=== PATIENT | male | born 1955 | race Asian ===

== ENCOUNTER → 2017-11-23 | Day surgery (SDC) | payer OTHER ==
[~2017-11-23] VITALS: Ht 167.6 cm; Wt 62.0 kg
[~2017-11-23] MED LIST: ACETAMINOPHEN 325 MG TABLET PO PRN; BENA20 PO; CLON.2 PO; CYCLOPENTOLATE HCL 2% 2 ML OPHTHALMIC SOLUTION ONE; DICLOFENAC SODIUM 0.1% 2.5 ML OPHTHALMIC SOLUTION ONE; EPINEPHrine 1:1,000 [1 MG/ML] AMP IM ONE; FentaNYL CITRATE-PF 100 MCG/2 ML VIAL IVP ONE; HYALURONATE SODIUM 12 MG/ML 0.8 ML SYRINGE IO ONE; LIDOCAINE HCL/PF 1% 2 ML VIAL IM ONE; MIDAZOLAM HCL 2 MG/2 ML VIAL IVP ONE; MOXIFLOXACIN HCL 0.5% 3 ML OPHTHALMIC SOLUTION ONE; NIFE90TA45 PO; PHENYLEPHRINE HCL 2.5% 2 ML OPHTHALMIC SOLUTION ONE; PILOCARPINE HCL 4% 15 ML OPHTHALMIC SOLUTION OS ONE; POVIDONE-IODINE 10% 15 ML SOLUTION UD TP ONE; RINGERS SOLUTION,LACTATED 500 ML IV ONE; TETRACAINE HCL/PF 0.5% 4 ML OPHTHALMIC SOLUTION ONE; TRIA1CAP2 PO; TROPICAMIDE 1% 2 ML OPHTHALMIC SOLUTION ONE
[2017-11-23] MEDS: TROPICAMIDE 1% 2 ML OPHTHALMIC SOLUTION OS SCH ×3 (06:52→07:02)
[2017-11-23] MEDS: CYCLOPENTOLATE HCL 2% 2 ML OPHTHALMIC SOLUTION OS SCH ×3 (06:52→07:06)
[2017-11-23] MEDS: DICLOFENAC SODIUM 0.1% 2.5 ML OPHTHALMIC SOLUTION OS SCH ×3 (06:52→07:02)
[2017-11-23] MEDS: PHENYLEPHRINE HCL 2.5% 2 ML OPHTHALMIC SOLUTION OS SCH ×3 (06:52→07:03)
[2017-11-23] MEDS: MOXIFLOXACIN HCL 0.5% 3 ML OPHTHALMIC SOLUTION OS SCH ×3 (06:57→07:06)
== END | disposition home or self-care (01) ==
LOC: SURGERY 06:04
PROVIDERS: ATTEND Ophthalmology
DX: H25.12 Age-related nuclear cataract, left eye (principal); I10 Essential (primary) hypertension; J45.998 Other asthma; Z98.890 Other specified postprocedural states; Z79.899 Other long term (current) drug therapy
CPT/HCPCS: 66984; 93005; C1780; J2250; J3010; J7120; J0171; J3490

== ENCOUNTER 2018-10-18 05:34 | Day surgery (SDC) | payer OTHER ==
[~2018-10-18] VITALS: Ht 165.1 cm; Wt 61.8 kg
[~2018-10-18 05:34] MED LIST changes: -ACETAMINOPHEN 325 MG TABLET PO PRN; -CYCLOPENTOLATE HCL 2% 2 ML OPHTHALMIC SOLUTION ONE; -DICLOFENAC SODIUM 0.1% 2.5 ML OPHTHALMIC SOLUTION ONE; -EPINEPHrine 1:1,000 [1 MG/ML] AMP IM ONE; -FentaNYL CITRATE-PF 100 MCG/2 ML VIAL IVP ONE; -HYALURONATE SODIUM 12 MG/ML 0.8 ML SYRINGE IO ONE; -LIDOCAINE HCL/PF 1% 2 ML VIAL IM ONE; -MIDAZOLAM HCL 2 MG/2 ML VIAL IVP ONE; -MOXIFLOXACIN HCL 0.5% 3 ML OPHTHALMIC SOLUTION ONE; -PHENYLEPHRINE HCL 2.5% 2 ML OPHTHALMIC SOLUTION ONE; -PILOCARPINE HCL 4% 15 ML OPHTHALMIC SOLUTION OS ONE; -POVIDONE-IODINE 10% 15 ML SOLUTION UD TP ONE; -TETRACAINE HCL/PF 0.5% 4 ML OPHTHALMIC SOLUTION ONE; -TROPICAMIDE 1% 2 ML OPHTHALMIC SOLUTION ONE
[2018-10-18] MEDS ORDERED: EPINEPHrine 1:1,000 [1 MG/ML] AMP IM ONE (05:35)
[2018-10-18] MEDS ORDERED: PILOCARPINE HCL 4% 15 ML OPHTHALMIC SOLUTION OD ONE (05:35)
[2018-10-18] MEDS ORDERED: POVIDONE-IODINE 10% 15 ML SOLUTION UD TP ONE (05:35)
[2018-10-18] MEDS ORDERED: HYALURONATE SOD/CHONDROITIN SOD 0.5 ML VIAL IO ONE (05:35)
[2018-10-18] MEDS ORDERED: FentaNYL CITRATE-PF 100 MCG/2 ML VIAL IVP ONE (05:35)
[2018-10-18] MEDS ORDERED: LIDOCAINE/PF 1% 2 ML VIAL IM ONE (05:35)
[2018-10-18] MEDS ORDERED: MIDAZOLAM HCL 2 MG/2 ML VIAL IVP ONE (05:35)
[2018-10-18] MEDS ORDERED: HYALURONATE SODIUM 12 MG/ML 0.8 ML SYRINGE IO ONE (05:35)
[2018-10-18] MEDS ORDERED: KETOROLAC TROMETHAMINE 0.5% 5 ML OPHTHALMIC SOLUTION ONE (05:37)
[2018-10-18] MEDS ORDERED: TETRACAINE HCL/PF 0.5% 4 ML OPHTHALMIC SOLUTION ONE (05:37)
[2018-10-18] MEDS ORDERED: MOXIFLOXACIN HCL 0.5% 3 ML OPHTHALMIC SOLUTION ONE (05:37)
[2018-10-18] MEDS ORDERED: CYCLOPENTOLATE HCL 1% 2 ML OPHTHALMIC SOLUTION ONE (05:38)
[2018-10-18] MEDS ORDERED: TROPICAMIDE 1% 2 ML OPHTHALMIC SOLUTION ONE (05:38)
[2018-10-18] MEDS ORDERED: PHENYLEPHRINE HCL 2.5% 2 ML OPHTHALMIC SOLUTION ONE (05:38)
[2018-10-18] MEDS ORDERED: RINGERS SOLUTION,LACTATED 500 ML IV ONE (05:39)
[2018-10-18] MEDS: PHENYLEPHRINE HCL 2.5% 2 ML OPHTHALMIC SOLUTION OD SCH ×3 (06:29→06:41)
[2018-10-18] MEDS: KETOROLAC TROMETHAMINE 0.5% 5 ML OPHTHALMIC SOLUTION OD SCH ×3 (06:30→06:41)
[2018-10-18] MEDS: CYCLOPENTOLATE HCL 1% 2 ML OPHTHALMIC SOLUTION OD SCH ×3 (06:30→06:41)
[2018-10-18] MEDS: MOXIFLOXACIN HCL 0.5% 3 ML OPHTHALMIC SOLUTION OD SCH ×3 (06:30→06:41)
[2018-10-18] MEDS: TROPICAMIDE 1% 2 ML OPHTHALMIC SOLUTION OD SCH ×3 (06:30→06:41)
[2018-10-18] MEDS ORDERED: TETRACAINE HCL/PF 0.5% 4 ML OPHTHALMIC SOLUTION OD ONE (07:00)
[2018-10-18] MEDS ORDERED: ALPRAZolam 0.5 MG TABLET PO ONE (07:00)
== END 2018-10-18 08:50 | disposition home or self-care (01) ==
LOC: SURGERY 05:34
PROVIDERS: ATTEND Ophthalmology
DX: H25.11 Age-related nuclear cataract, right eye (principal); I10 Essential (primary) hypertension; J44.9 Chronic obstructive pulmonary disease, unspecified; Z87.891 Personal history of nicotine dependence; Z72.89 Other problems related to lifestyle; Z79.899 Other long term (current) drug therapy; Z98.42 Cataract extraction status, left eye; Z98.890 Other specified postprocedural states
CPT/HCPCS: 66984; 93005; C1780; J0171; J2250; J3010; J3490 ×2; J7120